=== PATIENT | female | born 1985 | race Hispanic/Latino ===

== ENCOUNTER 2024-02-22 21:13 | Emergency (ER) | payer SELFPAY ==
[2024-02-22 21:19] VITALS: BP 113/63
[2024-02-22 21:42] VITALS: BP 105/72
[2024-02-22 21:43] VITALS: BMI 28.6
[2024-02-22 22:00] VITALS: BP 107/68
--- NOTE | 2024-02-22 22:29 | ED.SKININJ ---
HPI-Injury
General
Chief Complaint: Skin Problem
Source: patient
Exam Limitations: none
Time Seen by Provider: 02/22/24 21:36
Nursing documentation reviewed up to this point in time: agreed with
Travel History
Have you had any contact with someone who has COVID-19?: No
Do you have any symptoms of coronavirus? Fever > 100 degrees, chills, cough, shortness of breath, sore throat, loss of taste or smell, muscle aches, or headache?: No
History of Present Illness-Injury
Is this injury a work related problem?: No
Is pt an associate of [facility]?: No
Initial Injury comments:
Patient to ED with complaint of pain redness and swelling to left breast. Symptoms started 3 weeks ago and continue to worsen. No fever/chills. No nipple discharge. No prior history of same. Brought to ED by family for eval.
Past History
Past History
ED Past Medical History: None
ED Past Surgical History: None
Review of Systems
Review of Systems
Allergies reviewed?: Yes
All Other Systems: ROS reviewed and negative except as documented in HPI and ROS
Constitutional: Reports no symptoms
EENT: Reports no symptoms
Respiratory: Reports no symptoms
Cardiac: Reports no symptoms
ABD/GI: Reports no symptoms
Musculoskeletal: Reports no symptoms
Skin: Reports no symptoms (pain redness and swelling to left breast, outer aspect of areola. No nipple discharge. No skin changes.)
Neurological: Reports no symptoms
Psychiatric: Reports no symptoms
Phy Exam
General Physical Exam
General Presentation: well appearing and no apparent distress
General age: appears stated age
General Skin: warm and dry
Musculoskeletal Exam
Musculoskeletal Exam: full ROM and neuro vasc intact
Skin Exam
Skin Exam: normal color, warm/dry, no rash and other (erythema and pain to left breast at outer aspect of areola. NO nipple discharge, no skin changes. Large firm painful area under skin at site. No axillary lymph nodes palpated.)
Psychiatric Exam
Psychiatric Exam: normal mood/affect
Course
Orders/Labs/Results
Orders:
Orders
02/22/24 22:24
Cephalexin Monohydrate [Keflex] 500 mg PO NOW STA
Vital Signs
Initial and Last Documented VS:
Initial Vital Signs
Temp Pulse Resp BP Pulse Ox
98.4 F 65 16 113/63 97
02/22/24 21:19 02/22/24 21:19 02/22/24 21:19 02/22/24 21:19 02/22/24 21:19
Last Documented Vital Signs
Temp Pulse Resp BP Pulse Ox
98.4 F 65 16 107/68 99
02/22/24 21:19 02/22/24 21:19 02/22/24 21:19 02/22/24 22:00 02/22/24 22:15
*Critical Care Note
Total Time (30-74mins, 75-104mins- exclusive of procedures): Not Applicable
Update Note
Update Note:
Red painful left breast at outer aspect of areola. Hard and painful at site. Infection vs mass. Recommend mammogram, possibly with US next week. Pateint will followup with the clinic on Sunday to schedule testing. Will give course of antibiotic
to treat cellulitis. Patient was given instructions on s/s to return to ED and she is agreeable to plan
ED Attending Note
-
Portions of this chart may have been created with voice recognition software.� Occasional wrong word or��sound alike� substitutions may have occurred due to the inherent limitations of voice recognition software.
Discharge Plan
Departure
Patient Disposition: Home (Routine Discharge)
Date of Disposition: 02/22/24
Time of Disposition: 22:25
Patient with high blood pressure during this ER visit?: No
Condition: Good
Covid-19: Not Applicable
Discharge Problem:
Breast pain
Instructions: Cellulitis (Skin Infection), Adult (DC)
Prescriptions:
New
cephalexin 500 mg capsule
500 mg PO QID 7 Days Qty: 28 0RF
Referrals:
[facility] [Outside] - Call in 1-3 days for appt
NONE,* [Family Provider] -
Activity Restrictions/Additional Instructions:
Call the Clinic on Sunday to schedule your appointment. It is extremely important that you have a mammogram performed as soon as possible. Return to the emergency department immediately for fever/chills, increasing pain/redness/swelling, or for
any further concerns.
Interventions
Interventions:
*Risk Screen - Suicide Last Done: 02/22/24 21:26
*General Assessment Last Done: 02/22/24 21:49
*Neglect/Abuse Screening Last Done: 02/22/24 21:26
ED- Fall Risk Assessment Last Done: 02/22/24 21:26
*ED COVID-19 Vaccine History Last Done: 02/22/24 21:26
*Nursing Disposition Last Done: 02/22/24 22:45
ED-Skin Assessment Last Done: 02/22/24 21:44
Discharge Date and Time
Discharge Date/Time: 02/22/24 22:45
Print Language: GERMAN
[2024-02-22] MEDS: KEFLEX 500 MG PO (22:39)
== END 2024-02-22 22:45 | disposition home or self-care (01) ==
LOC: EMR 21:13
PROVIDERS: EMERGENCY PHYSICIAN Emergency Medicine
DX: N64.4 Mastodynia (principal)
CPT/HCPCS: 99283

== ENCOUNTER → 2024-12-03 10:34 | Outpatient (REF) | payer OTHER, SELFPAY | LOC: WDC 10:34 | PROVIDERS: ATTENDING PHYSICIAN Student in an Organized Health Care Education/Training Program | DX: N63.21 Unspecified lump in the left breast, upper outer quadrant (principal) | CPT/HCPCS: 76642; 77066 ==

== ENCOUNTER 2025-09-21 04:23 | Emergency (ER) | payer OTHER, SELFPAY ==
[2025-09-21 04:29] VITALS: BP 122/86
[2025-09-21 05:09] LABS: COVID-19 Antigen Negative (Negative)
--- NOTE | 2025-09-21 06:52 | ED.GENMED ---
History of Present Illness
General
Chief Complaint: Cold/Flu/URI Symptoms
Time Seen by Provider: 09/21/25 06:52
History of Present Illness
History of Present Illness:
FOCUSED PAST MEDICAL HISTORY
- No significant past medical history but did have breast abscesses in the past
REVIEW OF OLD RECORDS
- The patient was seen here in 2023 related to breast pain and outpatient studies suggested multiple abscesses in November 2024
Note:
CHIEF COMPLAINT(S)
Breathing problems and chest pain.
HISTORY OF PRESENT ILLNESS
The patient is a 40-year-old female presenting with breathing difficulties and chest pain, which have persisted for one week. The symptoms worsened significantly on Sunday night. The patients respiratory symptoms are associated with nasal congestion
and a sensation of fullness in the face. The patient has not mentioned a history of asthma or other respiratory issues but reports trying [id number] medications with no significant relief. There is no reported use of antibiotics recently, as
the patient did not take prescribed amoxicillin due to uncertainty about its necessity, given the suspicion of a viral etiology.
PHYSICAL EXAM
General: Alert, no acute distress.
Respiratory: Respirations are non-labored, but breath sounds are slightly diminished equally, with some congestion noted when speaking.
- General: Well appearing in no distress
- HEENT: Moist oral mucosa
- Cardiovascular: No chest wall tenderness
- Neurologic: Excellent strength all extremities, no coordination deficits
- Psychiatric: Appropriate mental status, normal insight and judgement
- Extremities: Nontender, no edema, moves all extremities equally
- Skin: No rash, no lesions
PLAN
A breathing treatment with a nebulizer is to be administered to the patient. A chest X-ray will be performed to assess the condition further. If the X-ray reveals any abnormalities, consideration will be given to starting the patient on amoxicillin.
DIFFERENTIAL DIAGNOSIS
The Differential Diagnosis includes, in no particular order and is not limited to:
1. Viral bronchitis
2. Bacterial pneumonia
3. Asthma exacerbation
4. Chronic obstructive pulmonary disease (COPD) exacerbation
5. Sinusitis
6. Pleural effusion
7. Congestive heart failure
8. Pulmonary embolism
9. Gastroesophageal reflux disease (GERD)
10. Anxiety-related hyperventilation
Disposition:
SUMMARY OF ENCOUNTER
The patient, a 40-year-old female, was seen in the emergency department for breathing problems and chest pain that had persisted for a week, worsening significantly on Sunday night. Initial management involved a chest X-ray, which was found to be
normal, ruling out pneumonia. The symptoms were assessed to be likely due to prolonged viral bronchitis. The patient received a breathing treatment with albuterol. Subsequent discussion revealed some intolerance to albuterol in the past, but it was
noted to be beneficial in opening up the airways. The patients condition slightly improved post-treatment.
DISPOSITION
Discharge.
PLAN
The patient will be discharged with a prescription for an albuterol inhaler to use as needed for relief of breathing difficulties.
FOLLOW-UP INSTRUCTIONS
Patient is advised to follow up with their primary care provider if symptoms persist or worsen.
MEDICATION RECONCILIATION
Prescribed albuterol inhaler to be used as needed.
MEDICAL DECISION MAKING
- Number and Complexity of Problems Addressed: Viral bronchitis was assessed as the primary condition impacting care.
- Data:
Category 1
My independent interpretation of the chest X-ray reveals no abnormal findings, confirming the absence of pneumonia or other acute issues.
- Risk:
Prescription medication was prescribed with a plan to continue monitoring improvement with the inhaler use.
DIAGNOSIS
- Acute bronchitis (ICD-10: J20.9)
RADIOLOGY
- Chest x-ray by my read shows no sign of pneumonia
LABS
- COVID and flu are both negative
UPDATE
- Some improvement after Motrin and DuoNeb given
- Suspect bronchitis
- Gave prescription for albuterol; patient does not have a true allergy to albuterol and seems to tolerate the DuoNeb given today
Past History
Past History
ED Past Medical History: None
ED Past Surgical History: None
Phy Exam
Physical Exam
Physical Exam:
See HPI
Course
Orders/Labs/Results
Orders:
Orders
09/21/25 04:41
COVID-19 Antigen Urgent
Source: Nasal Swab
Influenza A+B Rapid Molecular Urgent
BOB Source: Nasal Swab
Specimen Description:
09/21/25 07:00
Ibuprofen [Motrin] 800 mg PO NOW STA
Ipratropium/Albuterol Sulfate [Duoneb] 3 ml INH R NOW STA
CR Chest - 2 Views Urgent
Comment:
Reason For Exam: cp sob congestion
Vital Signs
Initial and Last Documented VS:
Initial Vital Signs
Temp Pulse Resp BP Pulse Ox
36.3 C 80 20 122/86 100
09/21/25 04:29 09/21/25 04:29 09/21/25 04:29 09/21/25 04:29 09/21/25 04:29
Last Documented Vital Signs
Temp Pulse Resp BP Pulse Ox
36.3 C 77 16 120/81 100
09/21/25 04:29 09/21/25 08:00 09/21/25 08:00 09/21/25 08:00 09/21/25 08:00
*Pulse Oximetry
SaO2: 100
Patient hypoxic: no
*Critical Care Note
Total Time (30-74mins, 75-104mins- exclusive of procedures): Not Applicable
ED Attending Note
-
Portions of this chart may have been created with voice recognition software.� Occasional wrong word or��sound alike� substitutions may have occurred due to the inherent limitations of voice recognition software.
Discharge Plan
Departure
Patient Disposition: Home (Routine Discharge)
Date of Disposition: 09/21/25
Time of Disposition: 08:04
Patient with high blood pressure during this ER visit?: Yes
Discharge Problem:
Acute bronchitis
Instructions: Acute Bronchitis, Adult (DC), BLOOD PRESSURE
Prescriptions:
New
albuterol sulfate [Ventolin HFA] 90 mcg/actuation HFA aerosol inhaler
2 puff inhalation Q6H PRN (Reason: shortness of breath or wheezing) Qty: 8.5 0RF
No Action
cephalexin 500 mg capsule
500 mg PO QID 7 Days Qty: 28 0RF
Referrals:
Nova Gaytan MD [Family Provider, Family Practice]
Activity Restrictions/Additional Instructions:
COVID and flu tests are both negative. I do not see any abnormality on the chest x-ray. I do not feel that you need antibiotics at this time. Return if worse or other concerns. Since the DuoNeb helped you, I sent a prescription for albuterol to
your pharmacy.
Interventions
Interventions:
*General Assessment Last Done: 09/21/25 06:57
*Neglect/Abuse Screening Last Done: 09/21/25 06:57
*ED COVID-19 Vaccine History Last Done: 09/21/25 06:57
*ED Influenza Vaccine History Last Done: 09/21/25 06:57
[facility] Fall Risk Assessment Tool Last Done: 09/21/25 06:56
*Risk Screen - Suicide (C-SSRS) Last Done: 09/21/25 04:29
ED- Pulmonary Assessment Last Done: 09/21/25 06:57
Discharge Date and Time
Print Language: [place] IRISH
[2025-09-21] MEDS: DUONEB 3 ML INH (07:06)
[2025-09-21] MEDS: MOTRIN 800 MG PO (07:06)
[2025-09-21 08:00] VITALS: BP 120/81
== END 2025-09-21 08:10 | disposition home or self-care (01) ==
LOC: EMR 04:23
PROVIDERS: Emergency Medicine; EMERGENCY PHYSICIAN Emergency Medicine; FAMILY PHYSICIAN Student in an Organized Health Care Education/Training Program
DX: J20.9 Acute bronchitis, unspecified (principal); Z11.52 Encounter for screening for COVID-19
CPT/HCPCS: 99284; 94640; 71046; 87502; 87811; 99285